=== PATIENT | female | born 1945 | race Caucasian/White ===

== ENCOUNTER 2022-09-25 15:42 | Emergency (ER) | payer MEDICARE, SELFPAY ==
--- NOTE | 2022-09-25 15:50 | ED.WOUNDLAC ---
HPI - Wound/Laceration General Stated Complaint: Cut Rt Arm Due to Fall Time Seen by Provider: 09/25/22 16:10 Source: patient and RN notes reviewed Mode of arrival: ambulatory Limitations: no limitations History of Present Illness HPI narrative: 77-year-old female with advanced dementia presents with concern for lacerations to her right arm. Her has been reports she had a spasm/jerking movement and cut her arm on a metal object. She is up-to-date on her vaccinations. He reports the bleeding was controlled, he put a bandage on it and came here. Related Data Home Medications Medication Instructions Recorded Confirmed donepezil 10 mg disintegrating 10 mg PO DAILY 09/25/22 09/25/22 tablet escitalopram oxalate 5 mg/5 mL 5 mg PO DAILY 09/25/22 09/25/22 oral solution lorazepam 0.5 mg tablet 0.5 mg PO DAILY 09/25/22 09/25/22 memantine 2 mg/mL oral solution 2 mg PO DAILY 09/25/22 09/25/22 quetiapine 25 mg tablet 25 mg PO DAILY 09/25/22 09/25/22 quetiapine 50 mg tablet 50 mg PO DAILY 09/25/22 09/25/22 Allergies Allergy/AdvReac Type Severity Reaction Status Date / Time No Known Allergies Allergy Verified 09/25/22 16:01 Review of Systems Review of Systems: CONSTITUTIONAL: Denies malaise, chills, sweats, or fever. SKIN: Reports lacerations to the right forearm MUSCULOSKELETAL: Denies muscle skeletal pain NEUROLOGIC: Denies numbness, weakness All systems reviewed & are unremarkable except as noted in HPI and below PMFSH Comments At time of signature, agree with nursing past medical, surgical, social and family history. There is no relevant family history pertinent to the presenting complaint Exam Narrative: GENERAL: Well-appearing, well-nourished, and in no acute distress. HEAD: Normocephalic, atraumatic. EYES: PERRLA, conjunctivae clear ENT: Mucous membranes moist. NECK: Supple. No lymphadenopathy CHEST: Clear to auscultation. No respiratory distress. HEART: Regular rate and rhythm. Pulses equal in bilateral upper extremities SKIN: Warm, dry. 3 cm superficial linear laceration below the right wrist, dorsal aspect, below that is a 5 cm laceration into the subcutaneous tissue, irregular with a proximal 6 cm skin tear. Superficial abrasions noted surrounding was lacerations. NEURO: Alert and oriented x3. PSYCH: Normal mood and affect Course Course Emergency Course: Patient is aware of diagnosis, understands and agrees to treatment plan. Anticipatory guidance given. Patient agrees to follow-up as directed and is aware of reasons to seek care at the emergency department. Portions of this record may have been created with voice recognition software Level of Care: Express Care Visit Vital Signs Vital signs: Reviewed. Procedures Laceration Laceration 1: Date: 09/25/22 Time: 16:20 Site: upper extremity Side (If applicable): right Size (cm): 3 Description: linear Depth: simple, single layer Local Anesthetic: lidocaine 1% Amount of anesthesia used (mL): 3 Pre-repair: wound explored and irrigated ====== Skin Level ====== Size (cm): 4-0 Number of sutures: 4 Technique: simple, interrupted ====== Subcutaneous Layer ====== ====== Muscle Layer ====== ====== Tendon Layer ====== Laceration 2: Date: 09/25/22 Time: 16:10 Site: upper extremity Side (If applicable): right Size (cm): 5 Description: irregular Depth: simple, single layer Local Anesthetic: lidocaine 1% Amount of anesthesia used (mL): 4 Pre-repair: wound explored and irrigated extensively ====== Skin Level ====== Skin layer closed with: nylon Size (cm): 4-0 Number of sutures: 7 Technique: simple, interrupted ====== Subcutaneous Layer ====== ====== Muscle Layer ====== ====== Tendon Layer ====== Laceration 3: Date: 09/25/22
[2022-09-25 16:00] VITALS: PULSE 65; RESP 18; TEMP 36.4; O2SAT 97
--- NOTE | 2022-09-25 16:01 | PC.NURSE ---
Patient unable to hold still and leave blood pressure cuff alone for an accurate reading of her blood pressure. Her says she has dementia.
[2022-09-25 16:03] VITALS: PULSE 65; RESP 18; TEMP 36.4; O2SAT 97
== END 2022-09-25 17:02 | disposition home or self-care (01) ==
PROVIDERS: Emergency Provider Nurse Practitioner
DX: S51.811A Laceration without foreign body of right forearm, initial encounter (principal); F03.90 Unspecified dementia, unspecified severity, without behavioral disturbance, psychotic disturbance, mood disturbance, and anxiety; W26.8XXA Contact with other sharp object(s), not elsewhere classified, initial encounter
CPT/HCPCS: 12005; 99212; G0463